=== PATIENT | female | born 1955 | race Caucasian/White ===

== ENCOUNTER 2017-06-22 08:13 | Emergency (ER) | payer OTHER ==
[~2017-06-22] VITALS: Ht 152.4 cm; Wt 49.9 kg
[~2017-06-22 08:13] MED LIST: OMEPRAZOLE20 M2 ORAL; RANITIDINE HCL150 MG ORAL; TRAMADOL HCL50 MG ORAL
[2017-06-22 08:22] VITALS: BP 141/86
[2017-06-22] MEDS ORDERED: Morphine Sulfate 4mg/ml Inj IVP ONE ×2 (08:30→10:30)
--- NOTE | 2017-06-22 08:32 | Emergency Room Report ---
History of Present Illness General Chief Complaint: Abdominal Pain Source: Patient Present Illness HPI Patient is a 62-year-old female who presented after increased epigastric pain and right upper quadrant pain. Patient present increased sharp pain which radiates to her back. She had prior history of cholecystectomy and had recent pancreatic biopsy at [facility]. The patient presented having increased nausea and vomiting. She reports having no hematemesis or bloody stools. She reports having increased diarrhea.The pain is worse with supine position Allergies: Coded Allergies: No Known Allergies (Unverified , 08/09/15) Patient History Past Medical History: see triage record Past Surgical History: veronika Reviewed Nursing Documentation: PMH: Agreed, PSxH: Agreed Nursing Documentation-PMH Past Medical History: No History, Except For Review of Systems All Other Systems: negative except mentioned in HPI Physical Exam Vital Signs Date Time Temp Pulse Resp B/P (MAP) Pulse Ox O2 Delivery O2 Flow Rate FiO2 06/22/17 08:15 98.0 76 18 141/86 98 Room Air 98.1 Sp02 EP Interpretation: reviewed, normal General Appearance: normal inspection, alert, GCS 15, mild distress Head: atraumatic ENT: normal ENT inspection, hearing grossly normal, normal voice Neck: normal inspection, full range of motion, supple, no bony tend Respiratory: normal inspection, lungs clear, normal breath sounds, no respiratory distress, no retraction, no wheezing Cardiovascular #1: regular rate, rhythm, no edema Gastrointestinal: normal inspection, normal bowel sounds, non tender, soft, no guarding, no hernia Genitourinary: no CVA tenderness Musculoskeletal: normal inspection, back normal, normal range of motion Neurologic: normal inspection, alert, oriented x3, responsive, welcome center attendant III-XII nml as tested, motor strength/tone normal, speech normal Psychiatric: normal inspection, judgement/insight normal, mood/affect normal Skin: normal inspection, normal color, no rash Medical Decision Making Diagnostic Impression: Primary Impression: Abdominal pain Additional Impressions: Pancreatic cyst Pancreatic abnormality ER Course Patient presented for abdominal pain. Differential diagnoses included ischemic bowel, appendicitis, perforated viscus, abdominal aortic aneurysm, inferior myocardial infarction, viral gastroenteritis. Because of complexity of patient' s case laboratory testing and imaging studies were ordered.The patient given IV fluids as well as IV pain medications. She was noted to have multiple cystic structures on CT the abdomen pelvis which are concerning for possible malignancy. Patient's case was discussed with Dr. Betts for [facility]. Labs Test 06/22/17 08:35 White Blood Count 6.5 K/UL (4.8-10.8) Red Blood Count 4.59 M/UL (4.20-5.40) Hemoglobin 13.8 G/DL (12.0-16.0) Hematocrit 41.1 % (37.0-47.0) Mean Corpuscular Volume 90 FL (80-99) Mean Corpuscular Hemoglobin 30.1 PG (27.0-31.0) Mean Corpuscular Hemoglobin Concent 33.6 G/DL (32.0-36.0) Red Cell Distribution Width 11.0 % (11.6-14.8) Platelet Count 279 K/UL (150-450) Mean Platelet Volume 9.2 FL (6.5-10.1) Neutrophils (%) (Auto) 70.7 % (45.0-75.0) Lymphocytes (%) (Auto) 23.9 % (20.0-45.0) Monocytes (%) (Auto) 4.5 % (1.0-10.0) Eosinophils (%) (Auto) 0.5 % (0.0-3.0) Basophils (%) (Auto) 0.5 % (0.0-2.0) Prothrombin Time 11.2 SEC (9.30-11.50) Prothromb Time International Ratio 1.1 (0.9-1.1) Activated Partial Thromboplast Time 27 SEC (23-33) Urine Color Pale yellow Urine Appearance Clear Urine pH 6.5 (4.5-8.0) Urine Specific [place] 1.010 (1.005-1.035) Urine Protein 1+ (NEGATIVE) Urine Glucose (UA) Negative (NEGATIVE) Urine Ketones 3+ (NEGATIVE) Urine Occult Blood 4+ (NEGATIVE) Urine Nitrite Negative (NEGATIVE) Urine Bilirubin Negative (NEGATIVE) Urine Urobilinogen Normal MG/DL (0.0-1.0) Urine Leukocyte Esterase 2+ (NEGATIVE) Urine RBC 2-4 /HPF (0 - 2) Urine WBC 5-10 /HPF (0 - 2) Urine Squamous Epithelial Cells Few /LPF (NONE/OCC) Urine Bacteria Occasional /HPF (NONE) Urine Mucus Few /LPF (NONE/OCC) Sodium Level 136 MMOL/L (136-145) Potassium Level 3.1 MMOL/L (3.5-5.1) Chloride Level 101 MMOL/L (98-107) Carbon Dioxide Level 27 MMOL/L (21-32) Anion Gap 8 mmol/L (5-15) Blood Urea Nitrogen 5 mg/dL (7-18) Creatinine 0.6 MG/DL (0.55-1.30) Estimat Glomerular Filtration Rate > 60 mL/min (>60) Glucose Level 106 MG/DL (74-106) Calcium Level 9.9 MG/DL (8.5-10.1) Total Bilirubin 0.5 MG/DL (0.2-1.0) Aspartate Amino Transf (AST/SGOT) 22 U/L (15-37) Alanine Aminotransferase (ALT/SGPT) 26 U/L (12-78) Alkaline Phosphatase 130 U/L (46-116) Troponin I 0.000 ng/mL (0.000-0.056) Total Protein 8.2 G/DL (6.4-8.2) Albumin 4.1 G/DL (3.4-5.0) Globulin 4.1 g/dL Albumin/Globulin Ratio 1.0 (1.0-2.7) Lipase 509 U/L (73-393) Last Vital Signs Date Time Temp Pulse Resp B/P (MAP) Pulse Ox O2 Delivery O2 Flow Rate FiO2 06/22/17 08:22 98.1 76 18 141/86 98 Room Air 98.1 Status: unchanged Disposition: XFER SHT-TRM HOSP Condition: Serious Referrals: [facility],REFERR[facility] (PCP) Ang Webb Jun 22, 2017 08:32
[2017-06-22 08:47] LABS: APPEARANCE,URINE CLEAR; BASOPHILS % (AUTO) 0.5 % (0.0-2.0); BILIRUBIN, URINE NEGATIVE (NEGATIVE); COLOR,URINE PALE YELLOW; EOSINOPHILS % (AUTO) 0.5 % (0.0-3.0); GLUCOSE, URINE (UA) NEGATIVE (NEGATIVE); HEMATOCRIT 41.1 % (37.0-47.0); HEMOGLOBIN 13.8 G/DL (12.0-16.0); KETONES,URINE 3+ (NEGATIVE); LEUKOCYTE ESTERASE ,URINE 2+ (NEGATIVE); LYMPHOCYTES % (AUTO) 23.9 % (20.0-45.0); MEAN CORPUSCULAR VOLUME 90 FL (80-99); MONOCYTES % (AUTO) 4.5 % (1.0-10.0); NEUTROPHILS % (AUTO) 70.7 % (45.0-75.0); NITRITE,URINE NEGATIVE (NEGATIVE); PH,URINE 6.5 (4.5-8.0); PLATELET COUNT 279 K/UL (150-450); PROTEIN,URINE 1+ (NEGATIVE); RED BLOOD COUNT 4.59 M/UL (4.20-5.40); UROBILINOGEN,URINE NORMAL MG/DL (0.0-1.0); WHITE BLOOD COUNT 6.5 K/UL (4.8-10.8)
[2017-06-22 09:02] LABS: ANION GAP 8 mmol/L (5-15); BLOOD UREA NITROGEN 5 mg/dL (7-18); CALCIUM 9.9 MG/DL (8.5-10.1); CARBON DIOXIDE 27 MMOL/L (21-32); CHLORIDE 101 MMOL/L (98-107); CREATININE 0.6 MG/DL (0.55-1.30); INR 1.1 (0.9-1.1); POTASSIUM 3.1 MMOL/L (3.5-5.1); SODIUM 136 MMOL/L (136-145)
[2017-06-22 09:06] LABS: ALANINE AMINOTRANSFERASE 26 U/L (12-78); ALBUMIN 4.1 G/DL (3.4-5.0); ALKALINE PHOSPHATASE 130 U/L (46-116); ASPARTATE AMINO TRANSFERASE 22 U/L (15-37); BILIRUBIN,TOTAL 0.5 MG/DL (0.2-1.0)
[2017-06-22] MEDS ORDERED: D5 1/2NS w/KCl 20mEq 1,000 ML IV SCH (09:30)
[2017-06-22] MEDS ORDERED: cefTRIAXone 1 GM in NS 55 ML IVPB ONE (09:30)
[2017-06-22 10:00] VITALS: BP 135/65
--- NOTE | 2017-06-22 10:43 | Diagnostic Imaging Report ---
Indication: Abdominal pain Technique: Continuous helical transaxial imaging of the abdomen and pelvis was obtained from the lung bases to the pubic symphysis during intravenous contrast administration. Coronal 2-D reformats were also obtained. Study obtained in a Siemens sensation [address] Automatic Exposure Control was utilized. Total Dose length Product (DLP): 487.[address] Dose Index Volume (CTDIvol): 10.08 mGy Comparison: None Findings: Breathing motion artifact is present limiting evaluation. Lung bases are grossly clear. The liver is hypodense consistent with fatty infiltration. Cholecystectomy clips are present. Multiple rim-enhancing cystic foci demonstrated within the head and body of the pancreas. Individual cysts measure between 1 cm and up to 4.5 cm in size. Taken together the area of involvement spans about 8 cm transversely 6 cm AP and 6 cm craniocaudal. In addition, the head and uncinate process of the pancreas appear prominent and enlarged relative to the distal body and tail the pancreas which is somewhat atrophic. The findings are concerning for cystic malignant neoplasm such as serous or mucinous carcinoma. There is no definite evidence of any associated biliary ductal dilatation or although the CBD is not well seen. The distalmost portion of the CBD near the ampulla is visualized and appears normal in caliber. The mass compresses the posterior wall of the antrum and pylorus of the stomach which is situated between the anterior abdominal wall and the mass. There is thickening of the wall of the antrum of the stomach. Kidneys are unremarkable. There is no evidence of bowel obstruction. Few discrete diverticula noted in the colon. The bladder is nondistended. Uterus is not seen. There is no free fluid. No hydronephrosis seen. IMPRESSION: Large multiloculated cystic mass occupying the head and body of the pancreas in an area that measures approximately 8 x 6 x 6 cm. Findings concerning for malignant cystic neoplasm. Differential includes pancreatitis with pseudocysts. Note: Per verbal report the mass or cyst was biopsied/aspirated at [facility] last week. Results are unknown. No associated biliary ductal dilatation or obstruction. Other incidental findings as above. Critical value communication. Findings were discussed via telephone with in the emergency Department. 06/22/2017, 10:[address] scanner at [facility] is accredited by the [employer] and the scans are performed using dose optimization techniques as appropriate to a performed exam including Automatic Exposure control.
[2017-06-22 10:56] VITALS: BP 139/74
[2017-06-22 12:32] VITALS: BP 138/60
[2017-06-22 12:33] VITALS: BP 138/60
== END 2017-06-22 12:35 | disposition short-term general hospital (02) ==
LOC: EMR 08:26
DX: R10.13 Epigastric pain (principal); K86.2 Cyst of pancreas
CPT/HCPCS: 36415; 74177; 80053; 81003; 83690; 84484; 85025; 85610; 85730; 96361; 96374; 99285; J0696; J2270; J2405; Q9967; S0028